=== PATIENT | male | born 1995 | race Two or more races ===

== ENCOUNTER 2019-06-19 21:26 | Emergency (ER) | payer SELFPAY ==
[~2019-06-19] VITALS: Ht 167.6 cm; Wt 81.1 kg
[2019-06-19 21:57] VITALS: BP 121/74
== END 2019-06-19 22:02 | disposition home or self-care (01) ==
LOC: ED 21:58
DX: H92.02 Otalgia, left ear (principal); J01.00 Acute maxillary sinusitis, unspecified; J30.2 Other seasonal allergic rhinitis
CPT/HCPCS: 99283

== ENCOUNTER 2019-09-27 19:42 | Emergency (ER) | payer MEDICAID ==
[~2019-09-27] VITALS: Ht 167.6 cm; Wt 76.0 kg
[2019-09-27 19:44] VITALS: BP 120/79
[2019-09-27] MEDS ORDERED: PROP60CA8 PO (20:01)
[2019-09-27] MEDS ORDERED: FLUO40CA9 PO (20:01)
[2019-09-27] MEDS ORDERED: CETI10TA24 PO (20:01)
--- NOTE | 2019-09-27 20:13 | NUR ---
DR. ALCALA TO FOR ASSESSMENT. PT REQUESTED THAT DR. ALCALA "POP" HIS EAR DRUM TO RELIEVE PRESSURE. PT EDUCATED BY MD THAT "POPPING" EAR DRUM IS NOT AN EFFECTIVE OR SAFE TREATMENT. PER DR. ALCALA, PT WILL BE GETTING SCRIPT FOR ABX. PT EDUCATED THAT [facility] DOES NOT HAVE A PHARMACY AND THAT [facility] IS THE CLOSEST 24 H[facility] PHARMACY. PT BECAME UPSET THAT HE WOULD NOT BE RECEIVING IV ABX DURING THIS VISIT AND THAT SINCE HIS INSURANCE DOES NOT TAKE [employer], HE WOULD NOT BE ABLE TO FILL SCRIPT TONIGHT. PT STATED, "I'LL JUST GO TO [facility] AND GET IV ABX AND HAVE THEM 'POP' MY EAR. IT'S FINE." PT TO DC DESK BY SELF. DR. ALCALA NOTIFIED AND DC PAPERWORK RECEIVED. THIS RN OFFERED PT DC PAPERWORK AND SCRIPTS AT DC DESK. PT REFUSED TO TAKE PAPERWORK AND SCRIPTS.
== END 2019-09-27 20:13 ==
LOC: ED 20:12
DX: H66.001 Acute suppurative otitis media without spontaneous rupture of ear drum, right ear (principal); J02.9 Acute pharyngitis, unspecified
CPT/HCPCS: 93005; 99283

== ENCOUNTER 2019-11-16 00:01 | Emergency (ER) | payer MEDICAID ==
[~2019-11-16] VITALS: Ht 167.6 cm; Wt 69.7 kg
[~2019-11-16 00:01] MED LIST: CETI10TA24 PO; FLUO40CA9 PO; PROP60CA36 PO
[2019-11-16 00:05] VITALS: BP 140/77
--- NOTE | 2019-11-16 00:09 | NUR ---
PT TO LOBBY, WAIT TIME EXPLAINED.
[2019-11-16 01:06] LABS: BASOPHILS # (AUTO) 0.02 x10^3/uL (0-0.1); BASOPHILS % (AUTO) 0 % (0-1); EOSINOPHILS # (AUTO) 0.11 x10^3/uL (0-0.4); EOSINOPHILS % (AUTO) 1 % (1-7); LYMPHOCYTES # (AUTO) 2.95 x10^3/uL (1-3.4); LYMPHOCYTES % (AUTO) 31 % (22-44); MD NO; MEAN CORPUSCULAR HEMOGLOBIN 31.4 pg (27.5-34.5); MEAN CORPUSCULAR HGB CONC 33.7 g/dL (33.2-36.2); MEAN CORPUSCULAR VOLUME 93.2 fL (81-97); MEAN PLATELET VOLUME 7.8 fL (7.4-10.4); MONOCYTES # (AUTO) 0.79 x10^3/uL (0.2-0.8); MONOCYTES % (AUTO) 8 % (2-9); NEUTROPHILS # (AUTO) 5.51 x10^3/uL (1.8-6.8); NEUTROPHILS % (AUTO) 59 % (42-75); PLATELET COUNT 394 x10^3/uL (130-400); RED BLOOD COUNT 4.92 x10^6/uL (4.38-5.82); RED CELL DISTRIBUTION WIDTH 12.7 % (9.4-14.8)
[2019-11-16 01:07] LABS: MICROSCOPIC NOT IND
[2019-11-16 01:12] LABS: ANION GAP 6 mmol/L (5-15); CALCIUM 9.3 mg/dL (8.5-10.1); CHLORIDE 105 mmol/L (98-107); CREATININE 0.98 mg/dL (0.7-1.3)
[2019-11-16 01:14] LABS: AMPHETAMINE SCREEN, URINE Positive (Negative); BARBITURATE SCREEN, URINE Negative (Negative); BENZODIAZEPINE SCREEN, URINE Negative (Negative); CANNABINOID SCREEN, URINE Positive (Negative); COCAINE SCREEN, URINE Negative (Negative); METHADONE SCREEN, URINE Negative (Negative); OPIATE SCREEN, URINE Negative (Negative)
[2019-11-16 01:16] LABS: CULTURE INDICATED? NO
== END 2019-11-16 01:29 | disposition home or self-care (01) ==
LOC: ED 01:23
CPT/HCPCS: 36415; 80048; 80307; 81003; 85025; 99283